=== PATIENT | female | born 1960 | race Caucasian/White ===

== ENCOUNTER 2023-10-10 16:25 | Emergency (ER) | payer OTHER, SELFPAY ==
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
[2023-10-10 16:27] VITALS: BP 141/83; PULSE 74; RESP 20; TEMP 37.1; O2SAT 99
--- NOTE | 2023-10-10 19:15 | PC.NURSE ---
Assumed care of pt. Report from DRAKE Herrera.
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
[2023-10-10 21:18] VITALS: BP 135/84; PULSE 79; RESP 14; TEMP 36.7; O2SAT 98
== END 2023-10-10 21:18 | disposition home or self-care (01) ==
PROVIDERS: Emergency Provider Physician Assistant
DX: S16.1XXA Strain of muscle, fascia and tendon at neck level, initial encounter (principal); Z87.891 Personal history of nicotine dependence; V89.2XXA Person injured in unspecified motor-vehicle accident, traffic, initial encounter
CPT/HCPCS: 72125; 72128; 72131; 73030; 73564; 99284